=== PATIENT | female | born 1955 | race Hispanic/Latino ===

== ENCOUNTER 2017-07-06 15:52 | Emergency (ER) | payer OTHER ==
[2017-07-06] MEDS ORDERED: ACETAMINOPHEN-CODEINE 300/30MG TAB ONE (16:22)
== END 2017-07-06 16:37 | disposition home or self-care (01) ==
LOC: EDH 15:52
DX: S52.592A Other fractures of lower end of left radius, initial encounter for closed fracture (principal); E11.22 Type 2 diabetes mellitus with diabetic chronic kidney disease; N18.6 End stage renal disease; Z79.4 Long term (current) use of insulin; Z99.2 Dependence on renal dialysis; W18.39XA Other fall on same level, initial encounter; Y93.01 Activity, walking, marching and hiking; Y92.89 Other specified places as the place of occurrence of the external cause; Y99.8 Other external cause status
CPT/HCPCS: 29125; 73090; 73110

== ENCOUNTER 2017-07-10 00:51 | Emergency (ER) | payer OTHER ==
[2017-07-10 02:42] LABS: BASOPHILS % (AUTO) 0.4 % (0.0-5.0); EOSINOPHILS % (AUTO) 2.5 % (0.0-8.0); HEMATOCRIT 34.6 % (36-48); LYMPHOCYTES % (AUTO) 9.5 % (21.0-51.0); MEAN CORPUSCULAR HEMOGLOBIN 31.2 pg (27.0-33.0); MEAN CORPUSCULAR HGB CONC 33.7 g/dL (32.0-36.0); MEAN CORPUSCULAR VOLUME 92.5 fL (79-99); MONOCYTES % (AUTO) 11.6 % (3.0-13.0); NUCLEATED RED BLOOD CELLS 0.1 % (0.0-0.19); PLATELET COUNT (AUTO) 255 K/uL (130-400); RED BLOOD CELL COUNT(AUTO) 3.74 MIL/uL (4.00-5.50); RED CELL DISTRIBUTION WIDTH 14.3 % (11.0-15.5); WHITE BLOOD COUNT (AUTO) 11.6 K/uL (4.8-10.8)
[2017-07-10 02:52] LABS: CREATININE 5.1 mg/dL (0.5-1.5); POTASSIUM 5.4 mmol/L (3.5-5.1)
[2017-07-10] MEDS ORDERED: ONDANSETRON HCL 4 MG/2 ML VIAL ONE (03:04)
[2017-07-10 03:05] LABS: ALBUMIN 2.7 g/dL (3.5-5.0); BILIRUBIN,TOTAL 0.6 mg/dL (0.2-1.0); TOTAL PROTEIN, SERUM 6.5 g/dL (6.0-8.3)
[2017-07-10] MEDS ORDERED: SUCRALFATE 1 GM TABLET ONE (03:05)
[2017-07-10] MEDS ORDERED: FAMOTIDINE/PF 20 MG/2 ML VIAL IV ONE (03:05)
[2017-07-10] MEDS ORDERED: CEFTRIAXONE SODIUM 1 GM ONE (04:39)
[2017-07-10] MEDS ORDERED: AZITHROMYCIN 250 MG TABLET PO ONE (04:40)
[2017-07-10] MEDS ORDERED: LIDOCAINE HCL-MPF 1% 2ML VIAL ONE (04:41)
== END 2017-07-10 07:45 | disposition home or self-care (01) ==
LOC: EDH 00:51
DX: S20.212A Contusion of left front wall of thorax, initial encounter (principal); J18.9 Pneumonia, unspecified organism; I12.0 Hypertensive chronic kidney disease with stage 5 chronic kidney disease or end stage renal disease; E11.22 Type 2 diabetes mellitus with diabetic chronic kidney disease; N18.6 End stage renal disease; Z99.2 Dependence on renal dialysis; W17.89XA Other fall from one level to another, initial encounter; Y93.89 Activity, other specified; Y92.89 Other specified places as the place of occurrence of the external cause; Y99.8 Other external cause status
CPT/HCPCS: 36415; 71046; 71100; 80053; 82550; 82553; 83690; 84484 ×2; 85025; 93005 ×2; 96372; 96374; 96375; 99285; J0696; J2405; J3490 ×2

== ENCOUNTER 2017-07-17 19:11 | Emergency (ER) | payer OTHER ==
[2017-07-17 20:31] LABS: APPEARANCE,URINE CLOUDY (CLEAR); BILIRUBIN,URINE NEGATIVE (NEGATIVE); COLOR,URINE YELLOW (YELLOW); GLUCOSE, URINE (UA) 500 mg/dL (NEGATIVE); KETONES,URINE NEGATIVE (NEGATIVE); LEUKOCYTE ESTERASE ,URINE TRACE (NEGATIVE); NITRATE,URINE NEGATIVE (NEGATIVE); OCCULT BLOOD,URINE SMALL (NEGATIVE); PH,URINE 8.5 (5.0-8.0); PROTEIN,URINE >=300 (NEGATIVE); UROBILINOGEN,URINE 0.2 mg/dL (0.2-1.0)
[2017-07-17 20:37] LABS: BACTERIA,URINE Rare /HPF (None Seen)
[2017-07-17 20:38] LABS: SQUAMOUS EPITHELIAL CELL,UR Moderate /LPF (0-2)
== END 2017-07-17 21:06 | disposition home or self-care (01) ==
LOC: EDH 19:11
DX: K56.41 Fecal impaction (principal); I12.0 Hypertensive chronic kidney disease with stage 5 chronic kidney disease or end stage renal disease; E11.22 Type 2 diabetes mellitus with diabetic chronic kidney disease; N18.6 End stage renal disease; Z79.4 Long term (current) use of insulin; Z99.2 Dependence on renal dialysis
CPT/HCPCS: 74021; 81001

== ENCOUNTER 2017-09-07 15:07 | Observation (INO) | payer OTHER ==
[~2017-09-07] VITALS: Ht 172.7 cm; Wt 102.1 kg
[2017-09-07 16:30] LABS: BASOPHILS % (AUTO) 0.8 % (0.0-5.0); EOSINOPHILS % (AUTO) 1.7 % (0.0-8.0); HEMATOCRIT 34.5 % (36-48); LYMPHOCYTES % (AUTO) 16.2 % (21.0-51.0); MEAN CORPUSCULAR HEMOGLOBIN 32.4 pg (27.0-33.0); MEAN CORPUSCULAR VOLUME 92.6 fL (79-99); MONOCYTES % (AUTO) 11.3 % (3.0-13.0); PLATELET COUNT (AUTO) 246 K/uL (130-400); RED BLOOD CELL COUNT(AUTO) 3.73 MIL/uL (4.00-5.50); RED CELL DISTRIBUTION WIDTH 13.9 % (11.0-15.5); WHITE BLOOD COUNT (AUTO) 8.2 K/uL (4.8-10.8)
[2017-09-07 16:43] LABS: CREATININE 3.4 mg/dL (0.5-1.5); POTASSIUM 4.4 mmol/L (3.5-5.1)
[2017-09-07 16:48] LABS: BILIRUBIN,TOTAL 0.3 mg/dL (0.2-1.0); TOTAL PROTEIN, SERUM 7.7 g/dL (6.0-8.3)
[2017-09-07] MEDS ORDERED: SODIUM CHLORIDE 0.9% 500ML 500 ML IV ONE (17:21)
[2017-09-07 21:49] LABS: APPEARANCE,URINE TURBID (CLEAR); BILIRUBIN,URINE NEGATIVE (NEGATIVE); COLOR,URINE YELLOW (YELLOW); GLUCOSE, URINE (UA) NEGATIVE (NEGATIVE); KETONES,URINE NEGATIVE (NEGATIVE); LEUKOCYTE ESTERASE ,URINE LARGE (NEGATIVE); NITRATE,URINE NEGATIVE (NEGATIVE); OCCULT BLOOD,URINE MODERATE (NEGATIVE); PROTEIN,URINE >=300 (NEGATIVE); UROBILINOGEN,URINE 0.2 mg/dL (0.2-1.0)
[2017-09-07 21:59] LABS: BACTERIA,URINE Moderate /HPF (None Seen); SQUAMOUS EPITHELIAL CELL,UR Few /HPF (0-2); WBC,URINE 51-100 /HPF (0-1)
[2017-09-07] MEDS ORDERED: ALBUMIN (HUMAN) 25% 50 ML IV ONE (23:58)
[2017-09-08 00:27] VITALS: BP 134/53
[2017-09-08] MEDS ORDERED: CEFTRIAXONE SODIUM 1 GM ONE (01:44)
[2017-09-08] MEDS ORDERED: ACETAMINOPHEN 325 MG TAB PO PRN (02:00)
[2017-09-08] MEDS ORDERED: CEFTRIAXONE SODIUM 1 GM IVP SCH (02:00)
[2017-09-08] MEDS ORDERED: ONDANSETRON HCL MDV 20ML 2 MG/ML VIAL IVP PRN (02:00)
[2017-09-08 04:00] VITALS: BP 149/91
[2017-09-08 04:32] LABS: HEMATOCRIT 32.7 % (36-48); MEAN CORPUSCULAR HEMOGLOBIN 31.4 pg (27.0-33.0); MEAN CORPUSCULAR HGB CONC 33.9 g/dL (32.0-36.0); MEAN CORPUSCULAR VOLUME 92.6 fL (79-99); PLATELET COUNT (AUTO) 232 K/uL (130-400); RED BLOOD CELL COUNT(AUTO) 3.53 MIL/uL (4.00-5.50); RED CELL DISTRIBUTION WIDTH 13.1 % (11.0-15.5); WHITE BLOOD COUNT (AUTO) 7.9 K/uL (4.8-10.8)
[2017-09-08 04:55] LABS: POTASSIUM 4.4 mmol/L (3.5-5.1)
[2017-09-08] MEDS ORDERED: ALBUMIN (HUMAN) 25% 100 ML IV SCH (06:00)
[2017-09-08 08:00] VITALS: BP 158/66
== END 2017-09-08 11:30 | disposition home or self-care (01) ==
LOC: EDH 15:07 → EDHIP 17:29 → 3DH 22:45
PROVIDERS: ADMIT Internal Medicine; ATTEND Internal Medicine
DX: I95.9 Hypotension, unspecified (principal); N39.0 Urinary tract infection, site not specified; I12.0 Hypertensive chronic kidney disease with stage 5 chronic kidney disease or end stage renal disease; E11.22 Type 2 diabetes mellitus with diabetic chronic kidney disease; E11.65 Type 2 diabetes mellitus with hyperglycemia; N18.6 End stage renal disease; E78.5 Hyperlipidemia, unspecified; E86.1 Hypovolemia; Z99.2 Dependence on renal dialysis
CPT/HCPCS: 36415 ×2; 71045; 80048; 80053; 81001; 82550; 82948 ×2; 84484; 85025; 85027; 93005; 96365; 99285; A4218; G0378 ×18; J0696; J7040; P9046; P9047

== ENCOUNTER 2019-09-23 08:36 | Emergency (ER) | payer OTHER ==
[2019-09-23 09:12] LABS: BASOPHILS % (AUTO) 0.5 % (0.0-5.0); EOSINOPHILS % (AUTO) 3.9 % (0.0-8.0); HEMATOCRIT 33.1 % (36-48); LYMPHOCYTES % (AUTO) 14.2 % (21.0-51.0); MEAN CORPUSCULAR HEMOGLOBIN 30.7 pg (27.0-33.0); MEAN CORPUSCULAR HGB CONC 32.9 g/dL (32.0-36.0); MEAN CORPUSCULAR VOLUME 93.2 fL (79-99); NEUTROPHILS % (AUTO) 67.5 % (40.0-77.0); PLATELET COUNT (AUTO) 262 K/uL (130-400); RED BLOOD CELL COUNT(AUTO) 3.55 MIL/uL (4.00-5.50); RED CELL DISTRIBUTION WIDTH 12.8 % (11.0-15.5); WHITE BLOOD COUNT (AUTO) 10.4 K/uL (4.8-10.8)
[2019-09-23] MEDS ORDERED: KETOROLAC TROMETHAMINE 60 MG/2 ML VIAL ONE (09:12)
[2019-09-23 09:49] LABS: BILIRUBIN,TOTAL 0.3 mg/dL (0.2-1.0); POTASSIUM 4.7 mmol/L (3.5-5.1); TOTAL PROTEIN, SERUM 7.6 g/dL (6.0-8.3)
[2019-09-23 10:25] LABS: CREATININE 9.8 mg/dL (0.5-1.5)
== END 2019-09-23 11:44 | disposition home or self-care (01) ==
LOC: EDH 08:36
DX: S22.32XA Fracture of one rib, left side, initial encounter for closed fracture (principal); I12.0 Hypertensive chronic kidney disease with stage 5 chronic kidney disease or end stage renal disease; E11.22 Type 2 diabetes mellitus with diabetic chronic kidney disease; N18.6 End stage renal disease; W17.89XA Other fall from one level to another, initial encounter; Y93.89 Activity, other specified; Y92.89 Other specified places as the place of occurrence of the external cause; Y99.8 Other external cause status
CPT/HCPCS: 36415; 71045; 71100; 80053; 85025; 96372; 99284; J1885; 71101

== ENCOUNTER 2020-02-29 08:50 | Emergency (ER) | payer OTHER ==
[2020-02-29 09:13] LABS: BASOPHILS % (AUTO) 0.6 % (0.0-5.0); EOSINOPHILS % (AUTO) 3.1 % (0.0-8.0); HEMATOCRIT 35.8 % (36-48); LYMPHOCYTES % (AUTO) 12.7 % (21.0-51.0); MEAN CORPUSCULAR HEMOGLOBIN 31.4 pg (27.0-33.0); MEAN CORPUSCULAR HGB CONC 33.5 g/dL (32.0-36.0); MEAN CORPUSCULAR VOLUME 93.7 fL (79-99); MONOCYTES % (AUTO) 9.9 % (3.0-13.0); NEUTROPHILS % (AUTO) 73.3 % (40.0-77.0); PLATELET COUNT (AUTO) 237 K/uL (130-400); RED BLOOD CELL COUNT(AUTO) 3.82 MIL/uL (4.00-5.50); RED CELL DISTRIBUTION WIDTH 12.3 % (11.0-15.5)
[2020-02-29 09:30] LABS: POTASSIUM 3.9 mmol/L (3.5-5.1)
[2020-02-29 09:33] LABS: ALBUMIN 3.2 g/dL (3.5-5.0); BILIRUBIN,TOTAL 0.5 mg/dL (0.2-1.0); CREATININE 3.5 mg/dL (0.5-1.5); TOTAL PROTEIN, SERUM 8.2 g/dL (6.0-8.3)
== END 2020-02-29 12:14 | disposition home or self-care (01) ==
LOC: EDH 08:50
DX: R60.9 Edema, unspecified (principal); I12.0 Hypertensive chronic kidney disease with stage 5 chronic kidney disease or end stage renal disease; E11.22 Type 2 diabetes mellitus with diabetic chronic kidney disease; N18.6 End stage renal disease; E78.00 Pure hypercholesterolemia, unspecified
CPT/HCPCS: 36415; 71045; 80053; 83880; 85025; 93005; 93970

== ENCOUNTER 2020-07-30 23:15 | Emergency (ER) | payer OTHER ==
[2020-07-30] MEDS ORDERED: MORPHINE SULFATE 4 MG/1ML SYG ONE (23:48)
[2020-07-30] MEDS ORDERED: ONDANSETRON HCL 4 MG/2 ML VIAL ONE (23:48)
== END 2020-07-31 03:48 | disposition home or self-care (01) ==
LOC: EDH 23:15
DX: S20.212A Contusion of left front wall of thorax, initial encounter (principal); S20.222A Contusion of left back wall of thorax, initial encounter; S40.012A Contusion of left shoulder, initial encounter; M54.2 Cervicalgia; M54.5 Low back pain; I12.0 Hypertensive chronic kidney disease with stage 5 chronic kidney disease or end stage renal disease; E11.22 Type 2 diabetes mellitus with diabetic chronic kidney disease; N18.6 End stage renal disease; Z99.2 Dependence on renal dialysis; W01.0XXA Fall on same level from slipping, tripping and stumbling without subsequent striking against object, initial encounter; Y93.89 Activity, other specified; Y92.89 Other specified places as the place of occurrence of the external cause; Y99.8 Other external cause status
CPT/HCPCS: 70450; 71045; 71250; 72125; 73030; 96374; 96375; 99285; J2270; J2405

== ENCOUNTER 2021-10-25 15:39 | Emergency (ER) | payer OTHER ==
[~2021-10-25] VITALS: Ht 152.4 cm; Wt 108.9 kg
[2021-10-25 16:37] LABS: BASOPHILS % (AUTO) 0.8 % (0.0-5.0); EOSINOPHILS % (AUTO) 3.3 % (0.0-8.0); HEMATOCRIT 36.9 % (36-48); LYMPHOCYTES % (AUTO) 15.4 % (21.0-51.0); MEAN CORPUSCULAR HEMOGLOBIN 31.8 pg (27.0-33.0); MEAN CORPUSCULAR HGB CONC 32.5 g/dL (32.0-36.0); MEAN CORPUSCULAR VOLUME 97.9 fL (79-99); MONOCYTES % (AUTO) 9.6 % (3.0-13.0); NEUTROPHILS % (AUTO) 70.6 % (40.0-77.0); PLATELET COUNT (AUTO) 228 K/uL (130-400); RED BLOOD CELL COUNT(AUTO) 3.77 MIL/uL (4.00-5.50); RED CELL DISTRIBUTION WIDTH 12.5 % (11.0-15.5)
[2021-10-25 16:50] LABS: CREATININE 7.5 mg/dL (0.5-1.5); POTASSIUM 4.8 mmol/L (3.5-5.1)
[2021-10-25 17:00] LABS: ALBUMIN 3.3 g/dL (3.5-5.0); BILIRUBIN,TOTAL 0.3 mg/dL (0.2-1.0); TOTAL PROTEIN, SERUM 7.6 g/dL (6.0-8.3)
[2021-10-25] MEDS ORDERED: CLONIDINE HCL 0.2 MG TABLET PO ONE ×2 (17:28→17:30)
[2021-10-25 18:28] VITALS: BP 172/86
== END 2021-10-25 18:31 | disposition home or self-care (01) ==
LOC: EDH 15:39
DX: I10 Essential (primary) hypertension (principal); R55 Syncope and collapse; E78.00 Pure hypercholesterolemia, unspecified; E11.9 Type 2 diabetes mellitus without complications
CPT/HCPCS: 36415; 70450; 80053; 84484; 85025; 93005

== ENCOUNTER 2023-02-11 18:42 | Emergency (ER) | payer OTHER ==
[~2023-02-11] VITALS: Ht 124.5 cm; Wt 104.3 kg
[~2023-02-11 18:42] MED LIST: ATOR40TA69 PO; HYDR-3420 PO; INSU3INS3 SQ; LATA7.5D OP; LEVO-70 PO; LOSA1TAB42 PO
[2023-02-11 19:55] VITALS: BP 152/77; PULSE 78; RESP 18
== END 2023-02-12 01:30 | disposition left against medical advice (07) ==
LOC: EDH 18:42
DX: I95.9 Hypotension, unspecified (principal); Z53.21 Procedure and treatment not carried out due to patient leaving prior to being seen by health care provider
CPT/HCPCS: 99281

== ENCOUNTER 2023-03-22 12:39 | Emergency (ER) | payer OTHER ==
[~2023-03-22] VITALS: Ht 167.6 cm; Wt 93.0 kg
[2023-03-22] MEDS ORDERED: MORPHINE 2 MG SYG IM ONE (14:00)
[2023-03-22] MEDS ORDERED: MELO-106 PO (15:03)
[2023-03-22] MEDS ORDERED: TRAM50TA4 PO (15:03)
[2023-03-22 15:37] VITALS: BP 136/82; PULSE 78; RESP 18; O2SAT 98
== END 2023-03-22 15:39 | disposition home or self-care (01) ==
LOC: EDH 12:39
DX: M17.12 Unilateral primary osteoarthritis, left knee (principal); M85.872 Other specified disorders of bone density and structure, left ankle and foot; I12.0 Hypertensive chronic kidney disease with stage 5 chronic kidney disease or end stage renal disease; E11.22 Type 2 diabetes mellitus with diabetic chronic kidney disease; N18.6 End stage renal disease; Z99.2 Dependence on renal dialysis; E78.00 Pure hypercholesterolemia, unspecified; Z79.899 Other long term (current) drug therapy
CPT/HCPCS: 99284; 73610; 73630; 73562; 73590; 96372; J2270

== ENCOUNTER 2023-05-02 11:40 | Emergency (ER) | payer OTHER ==
[~2023-05-02] VITALS: Ht 167.6 cm; Wt 104.8 kg
[~2023-05-02 11:40] MED LIST changes: +MELO-106 PO; +TRAM50TA4 PO
[2023-05-02 12:34] LABS: BASOPHILS # (AUTO) 0.03 K/uL (0.00-0.20); BASOPHILS % (AUTO) 0.5 % (0.0-5.0); EOSINOPHILS # (AUTO) 0.13 K/uL (0.00-0.70); EOSINOPHILS % (AUTO) 2.1 % (0.0-8.0); HEMATOCRIT 29.6 % (36-48); IMMATURE GRANULOCYTE ABSOLUTE 0.03 K/uL (0-1); LYMPHOCYTES % (AUTO) 16.2 % (21.0-51.0); MEAN CORPUSCULAR HEMOGLOBIN 32.5 pg (27.0-33.0); MEAN CORPUSCULAR HGB CONC 33.1 g/dL (32.0-36.0); MONOCYTES # (AUTO) 0.7 K/uL (0.1-1.0); MONOCYTES % (AUTO) 11.6 % (3.0-13.0); NEUTROPHILS # (AUTO) 4.3 K/uL (1.8-7.7); NEUTROPHILS % (AUTO) 69.1 % (40.0-77.0); PLATELET COUNT (AUTO) 150 K/uL (130-400); RED BLOOD CELL COUNT(AUTO) 3.02 MIL/uL (4.00-5.50); RED CELL DISTRIBUTION WIDTH 13.8 % (11.0-15.5); WHITE BLOOD COUNT (AUTO) 6.3 K/uL (4.8-10.8)
[2023-05-02 12:44] LABS: CREATININE 3.5 mg/dL (0.5-1.5); POTASSIUM 4.4 mmol/L (3.5-5.1)
[2023-05-02 12:51] LABS: ALBUMIN 2.8 g/dL (3.5-5.0); BILIRUBIN,TOTAL 0.3 mg/dL (0.2-1.0); TOTAL PROTEIN, SERUM 6.7 g/dL (6.0-8.3)
[2023-05-02] MEDS ORDERED: 0.9% NACL 250ML 250 ML IV ONE (14:30)
[2023-05-02 16:35] VITALS: BP 118/54; PULSE 66; RESP 18; O2SAT 99
== END 2023-05-02 16:37 | disposition home or self-care (01) ==
LOC: EDH 11:40
DX: T83.018A Breakdown (mechanical) of other urinary catheter, initial encounter (principal); I12.0 Hypertensive chronic kidney disease with stage 5 chronic kidney disease or end stage renal disease; E11.22 Type 2 diabetes mellitus with diabetic chronic kidney disease; N18.6 End stage renal disease; R53.1 Weakness; Z99.2 Dependence on renal dialysis
CPT/HCPCS: 99291; 96360; 84484 ×2; 80053; 85025; 36415; 93005; J7050

== ENCOUNTER 2023-05-11 13:01 | Observation (INO) | payer OTHER ==
[2023-05-11] VITALS (15 sets, daily range): BP systolic 105–177; BP diastolic 34–100; PULSE 67–69; RESP 14–16; TEMP 98.3; O2SAT 99
[~2023-05-11] VITALS: Ht 167.6 cm; Wt 104.8 kg
[2023-05-11] MEDS ORDERED: MORPHINE 2 MG SYG IVP ONE (15:00)
[2023-05-11] MEDS ORDERED: ONDANSETRON 4MG INJ IVP ONE (15:00)
[2023-05-11 15:57] LABS: BASOPHILS # (AUTO) 0.03 K/uL (0.00-0.20); BASOPHILS % (AUTO) 0.5 % (0.0-5.0); EOSINOPHILS # (AUTO) 0.17 K/uL (0.00-0.70); HEMATOCRIT 32.4 % (36-48); IMMATURE GRANULOCYTE ABSOLUTE 0.02 K/uL (0-1); LYMPHOCYTES % (AUTO) 18.4 % (21.0-51.0); MEAN CORPUSCULAR HEMOGLOBIN 32.6 pg (27.0-33.0); MEAN CORPUSCULAR HGB CONC 32.4 g/dL (32.0-36.0); MEAN CORPUSCULAR VOLUME 100.6 fL (79-99); MONOCYTES # (AUTO) 0.9 K/uL (0.1-1.0); MONOCYTES % (AUTO) 15.9 % (3.0-13.0); NEUTROPHILS # (AUTO) 3.5 K/uL (1.8-7.7); NEUTROPHILS % (AUTO) 61.8 % (40.0-77.0); PLATELET COUNT (AUTO) 189 K/uL (130-400); RED BLOOD CELL COUNT(AUTO) 3.22 MIL/uL (4.00-5.50); RED CELL DISTRIBUTION WIDTH 14.7 % (11.0-15.5); WHITE BLOOD COUNT (AUTO) 5.6 K/uL (4.8-10.8)
[2023-05-11 16:10] LABS: CREATININE 7.7 mg/dL (0.5-1.5); POTASSIUM 4.6 mmol/L (3.5-5.1)
[2023-05-11 16:14] LABS: ALBUMIN 3.2 g/dL (3.5-5.0); BILIRUBIN,TOTAL 0.4 mg/dL (0.2-1.0); TOTAL PROTEIN, SERUM 7.7 g/dL (6.0-8.3)
[2023-05-11] MEDS ORDERED: ONDANSETRON 4MG INJ IVP PRN (19:30)
[2023-05-11] MEDS ORDERED: HYDRALAZINE 20MG/ML VIAL IV PRN (19:30)
[2023-05-11] MEDS ORDERED: DOCUSATE SODIUM 100 MG CAP PO PRN (19:30)
[2023-05-11] MEDS ORDERED: LACTULOSE 20 GM/30 ML UDCUP PO PRN (19:30)
[2023-05-11] MEDS ORDERED: CLONIDINE HCL 0.1 MG TABLET PO PRN (19:30)
[2023-05-11] MEDS ORDERED: ALBUTEROL 0.083% 2.5 MG/3 ML INH IH PRN (19:30)
[2023-05-11] MEDS ORDERED: LABETALOL 20MG SYG IV PRN (19:30)
[2023-05-11] MEDS ORDERED: ACETAMINOPHEN 650 MG SUPPOSITORY RC PRN (19:30)
[2023-05-11] MEDS ORDERED: ACETAMINOPHEN 325 MG TAB PO PRN (19:30)
[2023-05-11] MEDS ORDERED: TEMAZEPAM 15 MG CAPSULE PO PRN (19:30)
[2023-05-11] MEDS ORDERED: IPRATROPIUM/ALBUTEROL SULFATE 3 ML SOLUTION IH PRN (19:30)
[2023-05-11] MEDS ORDERED: INSULIN HUMULIN R 100 UNIT/ML 3ML SQ SCH (21:00)
[2023-05-12 12:12] LABS: HEPATITIS B CORE AB TOTAL Non-Reactive (Nonreactive); HEPATITIS B SURFACE ANTIBODY Negative (Reactive); HEPATITIS B SURFACE ANTIGEN Non-Reactive (Nonreactive)
== END 2023-05-11 22:43 | disposition left against medical advice (07) ==
LOC: EDH 13:01 → EDHIP 18:51
PROVIDERS: ADMIT Internal Medicine Critical Care Medicine; ATTEND Internal Medicine Critical Care Medicine
DX: I13.11 Hypertensive heart and chronic kidney disease without heart failure, with stage 5 chronic kidney disease, or end stage renal disease (principal); E11.22 Type 2 diabetes mellitus with diabetic chronic kidney disease; N18.6 End stage renal disease; E87.70 Fluid overload, unspecified; E11.40 Type 2 diabetes mellitus with diabetic neuropathy, unspecified; R10.12 Left upper quadrant pain; I42.9 Cardiomyopathy, unspecified; E78.5 Hyperlipidemia, unspecified; D64.9 Anemia, unspecified; E66.01 Morbid (severe) obesity due to excess calories; I25.10 Atherosclerotic heart disease of native coronary artery without angina pectoris; Z99.2 Dependence on renal dialysis; Z95.810 Presence of automatic (implantable) cardiac defibrillator; Z68.37 Body mass index [BMI] 37.0-37.9, adult
CPT/HCPCS: 90935; 99285; 74176; 71045; 84484; 80053; 83690; 85025; 87040 ×2; 82948; 83605; 86706; 87340; 86704; 36415; 93005; G0378; G0257

== ENCOUNTER 2024-08-05 15:05 | Emergency (ER) | payer OTHER ==
[~2024-08-05] VITALS: Ht 160 cm; Wt 113.4 kg
[~2024-08-05 15:05] MED LIST changes: +AMOX1TAB15 PO; +DOXY100C5 PO; -LEVO-70 PO
--- NOTE | 2024-08-05 15:26 | ERN ---
ED Note History of Present Illness Stated Complaint: NECK PAIN, RASHES Chief Complaint: Shoulder Injury/Pain Time Seen by MD: 15:08 Dictation: PATIENT IS A 68-YEAR-OLD FEMALE HERE WITH MULTIPLE COMPLAINTS. FIRST COMPLAINT IS SHE IS HAVING POSTERIOR RIGHT SHOULDER PAIN SHE HAS HAD, NON TRAUMA FOR THE LAST 4-5 DAYS. NO CHEST PAIN NO BACK PAIN NO SOB. PATIENT IS DEMONSTRATING LIMITED ABDUCTION HOWEVER ABLE TO ABDUCT INCLUDE TOUCHING OPPOSITE SHOULDER. SECOND COMPLAINT IS SHE IS HAVING AND RASH FALLS OF HER ABDOMEN FOR THE LAST SEVERAL DAYS. SHE IS A DIABETIC HOWEVER QT PER HER DAUGHTER, SHE DOES NOT CHECK HER BLOOD SUGAR REGULARLY. SHE DID TAKE A NORCO THAT WAS PRESCRIBED BY HER DOCTOR PRIOR TO ARRIVAL. Allergies: Coded Allergies: No Known Allergies (Unverified Allergy, Unknown, 09/08/17) Home Meds Active Scripts Prednisone (Prednisone) 20 Mg Tablet, 1 TAB PO AD for 3 Days, #9 TAB 0 Refills TAKE THREE TABLETS DAILY WITH FOOD FOR THREE DAYS. Prov:OSCAR MERCADO NP 08/05/24 Clotrimazole (Clotrimazole) 1 % Cream..g., 1 APPL TP TID for 7 Days, #45 GM 0 Refills apply to affected area(s) Prov:OSCAR MERCADO NP 08/05/24 Doxycycline Hyclate (Doxycycline Hyclate) 100 Mg Capsule, 100 MG PO BID, #15 CAP 0 Refills Prov:ELIANA FRIAS SHOW DESIGN SUPERVISOR 11/22/23 Amoxicillin/Potassium Clav (Amox Tr-K Clv 500-125 mg Tab) 500 Mg-125 Mg Tablet, 1 EACH PO BID, #15 TAB 0 Refills Prov:ELIANA FRIAS SHOW DESIGN SUPERVISOR 11/22/23 Tramadol Hcl (Tramadol HCl) 50 Mg Tablet, 50 MG PO Q6HPRN PRN for PAIN LEVEL 6 TO 10 for 3 Days, #12 TAB 0 Refills Prov:ARACELI NASH DO 03/22/23 Meloxicam (Meloxicam) 7.5 Mg Tablet, 7.5 MG PO DAILY for 30 Days, #30 TAB 0 Refills Prov:ARACELI NASH DO 03/22/23 Reported Medications Insulin Glargine,Hum.rec.anlog (Lantus Solostar) 100 Unit/1 Ml Insuln.pen, 20 UNIT SQ HS, SYRINGE 11/04/21 Latanoprost/Pf (Latanoprost 0.005% Eye Drop) 7.5 Ml Drops, 1 DROP OP HS, DROP 11/04/21 Losartan/Hydrochlorothiazide (Losartan-Hctz 100-12.5 mg Tab) 1 Each Tablet, 1 EACH PO DAILY, TAB 11/04/21 Atorvastatin Calcium (LIPITOR) 40 Mg Tablet, 40 MG PO HS, TAB 11/04/21 Hydralazine Hcl (APRESOLINE) 10 Mg Tablet, 50 MG PO BID, TAB 11/04/21 Past Medical History Past Medical History: Diabetes-Type II, High Cholesterol, Hypertension, Renal Failure Additional Past Medical Hx: ESRD Surgical History: Pacer/AICD, Other Surgical History Other: DIALYSIS SHUNT TO RT FOREARM Social History: Negative, Lives with family History: Not Applicable RN Note Reviewed/Agreed w/PFSH: Yes Review of System Dictation CONSTITUTIONAL: NEGATIVE EXCEPT FOR HPI HEAD/FACE: NEGATIVE EXCEPT FOR HPI EENT: NEGATIVE EXCEPT FOR HPI RESPIRATORY: NEGATIVE EXCEPT FOR HPI GASTROINTESTINAL/ABDOMINAL: NEGATIVE EXCEPT FOR HPI GENITOURINARY: NEGATIVE EXCEPT FOR HPI MUSCULOSKELETAL: NEGATIVE EXCEPT FOR HPI POSTERIOR RIGHT SHOULDER PAIN INTEGUMENTARY: NEGATIVE EXCEPT FOR HPI RASH TO FOLDS OF ABDOMEN NEUROLOGICAL/PSYCH: NEGATIVE EXCEPT FOR HPI HEMATOLOGIC/LYMPHATIC: NEGATIVE EXCEPT FOR HPI ALL SYSTEMS NEGATIVE, EXCEPT NOTED ABOVE. 13 POINT REVIEW OF SYSTEMS ASSESSED AND ALL NEGATIVE EXCEPT FOR ABOVE. Initial Vital Sign VS Vital Signs Date Time Temp Pulse Resp B/P (MAP) Pulse Ox O2 Delivery O2 Flow Rate FiO2 08/05/24 15:11 98.4 63 16 137/77 97 Room Air 08/05/24 15:33 0 21 Physical Exam Dictation VITAL SIGNS REVIEWED GENERAL APPEARANCE: ALERT, ORIENTED X 3, MODERATE ACUTE DISTRESS, WELL DEVELOPE D, NOURISHED. HEAD AND FACE: NON-TRAUMATIC. EYES: PERRL, PINK CONJUNCTIVAS, EYELID NO TRAUMA, ANTERIOR CHAMBER WITH ARCUS SENILIS. EARS: PINNAS INTACT AND NO SIGNS OF TRAUMA OR ERYTHEMA EAR CANALS CLEAR AND NO DISCHARGE TM NO ERYTHEMA NOSE: NO DISCHARGE, NO BLEEDING. OROPHARYNX: MOUTH NORMAL, TONGUE PINK, PHARYNX CLEAR,NO ERYTHEMA, TONSILS NO EXUDATES, NO ABSCESSES NOTED, MUCOUS MEMBRANE MOIST NECK: SUPPLE, NON-TENDER, NO THYROMEGALY, NO MASSES, NO JVD, NO BRUITS BREAST:DEFERRED CHEST:NO TENDERNESS, NO CREPITUS, NO PARADOXICAL MOVEMENT, NO RETRACTIONS LUNGS:CLEAR, WELL-VENTILATED, SYMMETRIC, NO RALES, NO WHEEZING, NO RHONCHI, NO STRIDOR, GOOD BREATH SOUNDS BILATERALLY HEART: REGULAR RATE, REGULAR RHYTHM, NO MURMUR, NO GALLOPS VASCULAR: NO PERIPHERAL EDEMA, ABDOMEN: SOFT, POSITIVE BOWEL SOUNDS, NONDISTENDED, NO GUARDING, NONTENDER, NO REBOUND, NO MASSES NO HEPATOMEGALY, NO SPLENOMEGALY, NO BRISENO'S SIGN, NO HERNIAS. RECTAL: DEFERRED GENITAL: DEFERRED NEUROLOGICAL: NORMAL SPEECH, MOTOR FUNCTION INTACT, SENSORY FUNCTION INTACT MUSCULOSKELETAL: NECK NONTENDER, FULL RANGE OF MOTION, BACK NONTENDER, FULL RANGE OF MOTION, EXTREMITIES: DIFFUSE BILATERAL SHOULDER TENDERNESS WITH PALPATION AND RANGE OF MOTION. DECREASED ROM SECONDARY TO PAIN SKIN IS INTACT SKIN: COLOR PINK, PATIENT HAS A LARGE INTERTRIGO US AREA TO HER ABDOMEN WITH FUNGAL RASH NOTED. LYMPHATIC: DEFERRED Results (Laboratory/Radiology) Laboratory/Radiology Laboratory Tests Test 08/05/24 15:41 White Blood Count 7.5 K/uL (4.8-10.8) Red Blood Count 3.40 MIL/uL (4.00-5.50) L Hemoglobin 10.8 g/dL (12.0-16.0) L Hematocrit 33.7 % (36-48) L Mean Corpuscular Volume 99.1 fL (79-99) H Mean Corpuscular Hemoglobin 31.8 pg (27.0-33.0) Mean Corpuscular Hemoglobin Concent 32.0 g/dL (32.0-36.0) Red Cell Distribution Width 13.2 % (11.0-15.5) Platelet Count 235 K/uL (130-400) Mean Platelet Volume 11.5 fL (7.5-10.5) H Immature Granulocyte % (Auto) 0.3 % (0-1) Neutrophils (%) (Auto) 74.8 % (40.0-77.0) Lymphocytes (%) (Auto) 10.6 % (21.0-51.0) L Monocytes (%) (Auto) 10.1 % (3.0-13.0) Eosinophils (%) (Auto) 3.5 % (0.0-8.0) Basophils (%) (Auto) 0.7 % (0.0-5.0) Neutrophils # (Auto) 5.6 K/uL (1.8-7.7) Lymphocytes # (Auto) 0.8 K/uL (1.0-4.8) L Monocytes # (Auto) 0.8 K/uL (0.1-1.0) Eosinophils # (Auto) 0.26 K/uL (0.00-0.70) Basophils # (Auto) 0.05 K/uL (0.00-0.20) Absolute Immature Granulocyte (auto 0.02 K/uL (0-1) Nucleated Red Blood Cells 0.0 % (0.0-0.19) Sodium Level 135 mmol/L (136-145) L Potassium Level 4.8 mmol/L (3.5-5.1) Chloride Level 95 mmol/L (101-111) L Carbon Dioxide Level 32 mmol/L (21-32) Blood Urea Nitrogen 59 mg/dL (7-18) H Creatinine 6.3 mg/dL (0.5-1.0) H Glomerular Filtration Rate Calc 7 mL/min (>90) Random Glucose 247 mg/dL (70-105) H Total Calcium 8.7 mg/dL (8.5-10.1) Troponin I High Sensitivity 11 ng/L (4-50) 1545/SHOULDER X-RAY WAS DISCUSSED WITH DR. HIGHTOWER. THERE WAS CONCERN ON THE X- RAY A POSSIBLE SUBLUXATION OF THE SHOULDER. RECOMMENDED CT OF THE SHOULDER RULE OUT SUBLUXATION VERSUS DISLOCATION. 1820CT UPPER EXT W/O CONTRAST HISTORY: RIGHT ANTERIOR SHOULDER PAIN, SUBLUXATION VERSUS DISLOCATED, COMPARISON: Shoulder x-ray 08/05/2024 TECHNIQUE: Multiple sequential axial images of the right shoulder with sagittal and coronal reconstructions. FINDINGS: There is no identified fracture subluxation excretion. There is mild hypertrophic degenerative changes of the acromioclavicular joint. The glenoid appears intact. There is no identified joint effusion. Soft tissues appear grossly unremarkable. IMPRESSION: There is no fracture subluxation dislocation. There are no acute findings/ Labs Reviewed?: Yes EKG Comment: EKG SINUS RHYTHM/HEART RATE 74/AXIS NORMAL/NONSPECIFIC CHANGES IN LEADS TWO AND THREE ED Course ED Course Orders Procedure Category Date Status Time Dexamethasone 4mg/Ml PHA 08/05/24 Complete 1ml Vial (Dexametha 15:30 Acetaminophen With PHA 08/05/24 Complete Codeine (Tylenol-Code 15:30 Shoulder Comp 2+Vws Rt RAD 08/05/24 Resulted 15:21 Cbc With Differential LAB 08/05/24 Complete 15:21 Troponin I High LAB 08/05/24 Complete Sensitivity 15:21 12 Lead Ekg Tracing- EKG 08/05/24 Logged Technical 15:21 Basic Metabolic Panel LAB 08/05/24 Complete 15:21 Ct Upper Ext W/O CT 08/05/24 Resulted Contrast 15:46 Current Medications Medications (Trade) Dose Ordered Sig/Shirley Route PRN Reason Start Time Stop Time Status Last Admin Dose Admin Acetaminophen/ Codeine Phosphate (TYLenol-coDEINE TAB) 2 tab ONCE ONCE PO 08/05/24 15:30 08/05/24 15:31 DC 08/05/24 16:31 Dexamethasone Sodium Phosphate (dexaMETHasone 4MG/ML 1ML VIAL) 8 mg ONCE ONCE IM 08/05/24 15:30 08/05/24 15:31 DC 08/05/24 16:31 Vital Signs Date Time Temp Pulse Resp B/P (MAP) Pulse Ox O2 Delivery O2 Flow Rate FiO2 08/05/24 18:18 98.2 73 16 145/70 98 Room Air* 0 21 08/05/24 15:33 98.2 60 16 135/75 98 Room Air* 0 21 08/05/24 15:11 98.4 63 16 137/77 97 Room Air 1830/PATIENT STATES PAIN IS MARKEDLY IMPROVED HOWEVER NOT ELIMINATED. SHE IS AWARE THAT X-RAY AND CT DEMONSTRATES DEGENERATIVE CHANGES ONLY HOWEVER THIS WE WILL BE CHRONIC AND CAN BE PALLIATED. SHE HAS NORCO 5/325 AT HOME PER THE DAUGHTER THAT SHE CAN TASTE TWICE A DAY I WILL GIVE HER PREDNISONE FOR THREE MORE DAYS AND HAVE HER SEE YOUR DOCTOR ADDITIONALLY SHE WILL BE PRESCRIBED CLOTRIMAZOLE CREAM TO BE APPLIED3 TIMES A DAY FOR SEVEN DAYS TO THE INTERTRIGO HIS AREA OF HER ABDOMEN HEART Score Response (Comments) Value EKG: Repolarization changes 1 Age: > 65yrs (+2) 2 Risk Factors: 3+ risk factors (+2) 2 Initial Troponin: Normal limit (0) 0 Total 5 Medical Decision Making MDM MDM: DIFFERENTIAL DIAGNOSIS: ACS/AMI/PNEUMONIA/BRONCHITIS/DISLOCATED SHOULDER/ARTHRITIS/CHRONIC PAIN/SKIN FUNGAL INFECTION RATIONALE: TESTS CONSIDERED AND ORDERED SECONDARY TO SHARED DECISION MAKING INCLUDE: LABS/EKG/RADIOLOGY PREVIOUS OUTSIDE RECORDS REVIEWED: OLD ER VISITS. RISK OF COMPLICATION AND/OR MORBIDITY OR MORTALITY OF PATIENT MANAGEMENT: NONE MEDICATIONS-PER MEDICATION RECONCILIATION NEED FOR HOSPITALIZATION: PATIENT DOES NOT MEET CRITERIA FOR HOSPITALIZATION. NO NEED FOR EMERGENCY MAJOR/MINOR SURGERY: NO THERE ARE NO SOCIAL CONCERNS WITH THIS PATIENT. PRESCRIPTION DRUG MANAGEMENT PREDNISONE/CLOTRIMAZOLE. PATIENT HAS NORCO 5/325 AT HOME PRESCRIPTIONS WILL INCLUDE SYMPTOMATIC CARE PATIENT'S PRIOR EXTERNAL MEDICAL RECORDS FROM OTHER ER VISITS WERE REVIEWED BY ME INDICATED. PRIOR TESTING AND RESULTS FROM PREVIOUS VISITS WERE REVIEWED. PRIOR TESTS WERE TAKEN INTO ACCOUNT WITH MEDICAL DECISION MAKING AND RESOURCE UTILIZATION, INDEPENDENT HISTORIAN/HISTORIANS WERE USED TO OBTAIN COMPLETE MEDICAL HISTORY. I INDEPENDENTLY INTERPRETED THE TEST THAT WERE PERFORMED, RESULTS WERE REVIEWED BY ME AND CONSIDERED FINDINGS ON RADIOLOGY IF ORDERED. MEDICAL MANAGEMENT AND EXAMINATION INTERPRETATION DISCUSSIONS WERE HAD BY ME WITH OTHER QUALIFIED HEALTHCARE PROFESSIONALS INDICATED FOR THE PATIENT'S CARE. DX & DISP Disposition: Discharge Departure Impression: Primary Impression: Superficial fungal infection of skin Additional Impressions: DJD of right shoulder, ESRD (end stage renal disease) on dialysis, Anemia of chronic kidney failure, Uncontrolled diabetes mellitus Condition: Stable Scripts Prednisone (Prednisone) 20 Mg Tablet 1 TAB PO AD for 3 Days, #9 TAB 0 Refills TAKE THREE TABLETS DAILY WITH FOOD FOR THREE DAYS. Prov: OSCAR MERCADO DIRECTOR DATA MANAGEMENT 08/05/24 Clotrimazole (Clotrimazole) 1 % Cream..g. 1 APPL TP TID for 7 Days, #45 GM 0 Refills apply to affected area(s) Prov: OSCAR MERCADO DIRECTOR DATA MANAGEMENT 08/05/24 Additional Instructions: FOLLOW-UP WITH PRIMARY CARE PROVIDER IN 1 TO 2 DAYS. TAKE MEDICATIONS DIRECTED HERE IN THE EMERGENCY ROOM. OKAY TO CONTINUE HOME MEDICATIONS UNLESS OTHERWISE DISCUSSED DURING YOUR VISIT IN THE EMERGENCY ROOM TODAY. RETURN TO YOUR NEAREST EMERGENCY ROOM IF SYMPTOMS WORSEN OR IF THERE IS NO IMPROVEMENT. CALL 911 IF YOU NEED IMMEDIATE ASSISTANCE. TAKE TYLENOL OR MOTRIN [id number] NEEDED AND IF NO CONTRAINDICATIONS ARE PRESENT. INCREASE ORAL HYDRATION. A WOUND CULTURE OR URINE CULTURE WAS ORDERED HERE IN THE EMERGENCY ROOM DEPARTMENT PLEASE FOLLOW-UP WITH PRIMARY CARE PROVIDER AND ADVISE THEM TO GET REPEAT PORTS FROM OUR FACILITY. IF YOU HAD ANY DEMI WRAP/SPLINTS THAT WERE APPLIED HERE, PLEASE DO NOT REMOVE THEM UNTIL YOU SEE YOUR PRIMARY CARE OR SPECIALTY. CONTINUE NORCO 5/325 AT HOME FOR SEVERE PAIN. TAKE PREDNISONE DIRECTED WITH FOOD DAILY FOR THREE DAYS. WASH AREA UNDER ABDOMINAL AREA WITH SOAP AND WATER AND DRY THOROUGHLY AND THEN APPLY ANTIFUNGAL CREAM DIRECTED FOR SEVEN DAYS. SUGGEST WARM COMPRESSES TO RIGHT SHOULDER THREE TO 4 TIMES A DAY. SEE YOUR PRIMARY CARE DOCTOR FOR FOLLOW UP Referrals: TIARRA LINTON MD (PCP) Time of Disposition: 18:32 I have reviewed the case, and I agree with, Diagnosis and Plan I performed a substantive portion of the visit. I have reviewed and personally made and approve the management plan that is documented in the notes by myself with CHAPARRO/resident. I acknowledged full responsibility for the patient's management plan. OSCAR MERCADO NP Aug 05, 2024 15:26 SAIGE HIGHTOWER DO Aug 06, 2024 05:46
--- NOTE | 2024-08-05 15:55 | HMCIMG ---
SHOULDER COMP 2+VWS RT CLINICAL HISTORY: RIGHT POSTERIOR SHOULDER PAIN, NON TRAUMA COMPARISON: None TECHNIQUE: 2 images were obtained. FINDINGS: No obvious fracture or dislocation. No joint effusion. The soft tissues appear unremarkable. No radiopaque foreign bodies. IMPRESSION: No acute findings.
[2024-08-05 16:00] LABS: BASOPHILS # (AUTO) 0.05 K/uL (0.00-0.20); BASOPHILS % (AUTO) 0.7 % (0.0-5.0); EOSINOPHILS # (AUTO) 0.26 K/uL (0.00-0.70); EOSINOPHILS % (AUTO) 3.5 % (0.0-8.0); HEMATOCRIT 33.7 % (36-48); IMMATURE GRANULOCYTE ABSOLUTE 0.02 K/uL (0-1); LYMPHOCYTES # (AUTO) 0.8 K/uL (1.0-4.8); LYMPHOCYTES % (AUTO) 10.6 % (21.0-51.0); MEAN CORPUSCULAR HEMOGLOBIN 31.8 pg (27.0-33.0); MEAN CORPUSCULAR VOLUME 99.1 fL (79-99); MONOCYTES # (AUTO) 0.8 K/uL (0.1-1.0); MONOCYTES % (AUTO) 10.1 % (3.0-13.0); NEUTROPHILS # (AUTO) 5.6 K/uL (1.8-7.7); NEUTROPHILS % (AUTO) 74.8 % (40.0-77.0); PLATELET COUNT (AUTO) 235 K/uL (130-400); RED CELL DISTRIBUTION WIDTH 13.2 % (11.0-15.5); WHITE BLOOD COUNT (AUTO) 7.5 K/uL (4.8-10.8)
[2024-08-05 16:11] LABS: CREATININE 6.3 mg/dL (0.5-1.0); POTASSIUM 4.8 mmol/L (3.5-5.1)
[2024-08-05] MEDS: acetaMINOPHEN WITH coDEINE 1 TAB TAB PO ONE (16:31)
[2024-08-05] MEDS: dexaMETHasone SOD PHOSPHATE 4 MG/ML 1ML VIAL IM ONE (16:31)
--- NOTE | 2024-08-05 17:52 | HMCIMG ---
CT UPPER EXT W/O CONTRAST HISTORY: RIGHT ANTERIOR SHOULDER PAIN, SUBLUXATION VERSUS DISLOCATED, COMPARISON: Shoulder x-ray 08/05/2024 TECHNIQUE: Multiple sequential axial images of the right shoulder with sagittal and coronal reconstructions. FINDINGS: There is no identified fracture subluxation excretion. There is mild hypertrophic degenerative changes of the acromioclavicular joint. The glenoid appears intact. There is no identified joint effusion. Soft tissues appear grossly unremarkable. IMPRESSION: There is no fracture subluxation dislocation. There are no acute findings
[2024-08-05 18:18] VITALS: BP 145/70; PULSE 73; RESP 16; TEMP 98.3; O2SAT 98
[2024-08-05] MEDS ORDERED: PRED20TA3 PO (18:35)
[2024-08-05] MEDS ORDERED: CLOT15CR23 TP (18:35)
--- NOTE | 2024-08-06 07:05 | EKG ---
[facility] Test Date: 2024-08-05 Test Time: 15:16:26 Pat Name: GABRIELLE FREITAS Department: ED Room: Gender: F Insole Stiffener: [id number] : 1955 Requested By: OSCAR MERCADO Order Number: [id number] Reading MD: Fabiano Coronado Measurements Intervals [place] Rate: 72 P: 31 UT: 197 QRS: -22 QRSD: 96 T: 8 QT: 436 QTc: 479 Interpretive Statements Sinus rhythm Inferior infarct, age indeterminate Compared to ECG 11/20/2023 19:35:13 Myocardial infarct finding now present Electronically Signed On 08-06-2024 16:04:11 HEAVY MOBILE EQUIPMENT OPERATOR by Fabiano Coronado Please click the below link to view image of tracing.
== END 2024-08-05 18:46 | disposition home or self-care (01) ==
LOC: EDH 15:05
DX: E11.22 Type 2 diabetes mellitus with diabetic chronic kidney disease (principal); I12.0 Hypertensive chronic kidney disease with stage 5 chronic kidney disease or end stage renal disease; N18.6 End stage renal disease; D63.1 Anemia in chronic kidney disease; E11.65 Type 2 diabetes mellitus with hyperglycemia; B36.9 Superficial mycosis, unspecified; M19.011 Primary osteoarthritis, right shoulder; E78.00 Pure hypercholesterolemia, unspecified; Z79.1 Long term (current) use of non-steroidal anti-inflammatories (NSAID); Z79.899 Other long term (current) drug therapy; Z95.810 Presence of automatic (implantable) cardiac defibrillator; Z99.2 Dependence on renal dialysis
CPT/HCPCS: 99285; 73200; 84484; 80048; 85025; 36415; 73030; 96372; 93005; J1100